=== PATIENT | female | born 1950 | race Caucasian/White ===

== ENCOUNTER 2022-10-22 12:11 | Emergency (ER) | payer MEDICARE, BC, SELFPAY ==
[2022-10-22 12:22] VITALS: BP 138/61; PULSE 72; TEMP 35.9; O2SAT 100; BMI 20.2
--- NOTE | 2022-10-22 13:30 | ED.LOWEXIN ---
HPI - Extremity Injury (Lower) General Time Seen by Provider: 13:30 Date Seen: 10/22/22 Chief Complaint: Extremity Pain/Injury, Lower Stated Complaint: Right knee injury Time Seen by Provider: 10/22/22 13:07 Source: patient, RN notes reviewed and old records reviewed Mode of arrival: wheelchair Limitations: no limitations History of Present Illness HPI Narrative: Joellen is a very pleasant 72-year-old female with a history of hypertension and hyperlipidemia via private vehicle but in a wheelchair for right leg trauma. Patient was noted to be out in the yd with her dogs. She had 1 dog on her left and another dog ran and hit her from the lateral aspect of her right knee. This caused her to fall over the dog on her left. Since that time she has had excruciating right leg pain mainly in the knee. She states that her hip also hurts but agrees that is likely from radiation from her knee. She has been unable to bear weight or to straighten her leg out since that time. She has not taken any medications. In fact she states that she has not had anything to eat this morning and that she does suffer from low blood sugar. She notes that she did get nauseated on her way to the hospital. She denies any head ache, head trauma, neck pain. Any movement greatly increases her discomfort. Related Data Home Medications Medication Instructions Recorded Confirmed diltiazem HCl 120 mg mg PO 10/22/22 capsule,extended release 24 hr diltiazem HCl 180 mg mg PO 10/22/22 capsule,extended release 24 hr gabapentin 300 mg capsule mg 10/22/22 rosuvastatin 10 mg tablet mg 10/22/22 Allergies Allergy/AdvReac Type Severity Reaction Status Date / Time lisinopril Allergy Unknown Verified 10/22/22 12:25 Review of Systems Status of ROS: Reports: 10 or more systems reviewed and unremarkable except as noted in History and below Const: Denies: fever or chills Eyes: Denies: change in vision ENMT: Denies: neck pain Cardio: Denies: chest pain or shortness of breath with exertion Resp: Denies: shortness of breath or cough GI: Reports: nausea; Denies: abdominal pain or vomiting Musculo: Reports: extremity pain (Right hip, knee, ankle and foot); Denies: back pain or neck pain Neuro: Denies: headache Viral/Lymph: Reports: easy bruising (If using aspirin or NSAIDs) PFSH [facility] Social History Smoking Status: Unknown if ever smoked How often do you have a drink containing alcohol: 2-4 times a month How many standard drinks containing alcohol do you have on a typical day: 1 or 2 How often do you have six or more drinks on one occasion: Never AUDIT-C Alcohol total score: 2 Non-prescribed substance use: denies use Exam Narrative: Exam Narrative: Patient is alert and oriented. Mentating normally. Head is atraumatic normocephalic. No midline cervical tenderness. Heart with regular rate and rhythm. Lungs are clear bilaterally. Abdomen soft. Palpation over the left hip increases discomfort mainly radiating to the knee. I am unable to examine the knee given patient's exquisite discomfort. Distally she has pain over the lateral aspect of her right foot. She states that she cannot feel me palpating her over the distal fibula or over the lateral malleolus. No swelling of the foot or ankle. Patient examined in her wheelchair. Further exam after patient successfully moved to bed notes no crepitus or bruising on chest wall. Abdomen is soft nontender. No pain with palpation over greater trochanter or PE pain in hips. Knee is somewhat swollen but no erythema. Patella appears to be in normal place. No significant discomfort with palpation over the medial joint line. Discomfort definitely noted over the lateral joint line and with any movement. Examination of left chest wall, left hip left leg shows no ecchymosis pedal pulses intact bilaterally. Const: Vital Signs, click to edit/add: Vital Signs - 24 hr 10/22/22 12:22 10/22/22 14:31 10/22/22 15:21 Temperature 96.7 F L Pulse Rate [Left P ulse Oximeter] 72 68 58 L Respiratory Rate 16 16 Blood Pressure [Ri ght Upper Arm] 138/61 147/67 H 141/61 H Pulse Oximetry 100 98 99 Oxygen Delivery Me thod Room Air Room Air Room Air 10/22/22 16:19 Temperature Pulse Rate [Left P ulse Oximeter] 84 Respiratory Rate 18 Blood Pressure [Ri ght Upper Arm] Pulse Oximetry 96 Oxygen Delivery Me thod Room Air Documenting provider has reviewed patient's vital signs: yes Course Course Hospital Course: At this time patient is in exquisite pain with any movement. Patient will need to have x-rays of her right lower extremity but this will be and nearly impossible giving her pain. Will have an IV placed, fentanyl 50 mcg given, and Accu-Chek done. Will add Zofran for nausea. I am hopeful that this will allow us to get x-rays of the patient. If not we could always add a low-dose ketamine drip over 20 minutes. Reevaluation(s) Reevaluation #1: Patient did have relief with fentanyl 50 mcg. Further 25 mcg was given as well as Ativan 0.5 mg to help with muscle spasm. Prior to departure patient given oxycodone 5 mg p.o.. Vital Signs Vital signs: Initial Vital Signs Temperature 96.7 F L 10/22/22 12:22 Temperature Source Temporal Artery Scan 10/22/22 12:22 Pulse Rate 72 10/22/22 12:22 Blood Pressure 138/61 10/22/22 12:22 Blood Pressure Mean 86 10/22/22 12:22 Blood Pressure Position Sitting 10/22/22 12:22 Pulse Oximetry 100 10/22/22 12:22 Oxygen Delivery Method 10/22/22 12:22 Vital Signs Temperature 96.7 F L 10/22/22 12:22 Pulse Rate 72 10/22/22 12:22 Blood Pressure 138/61 10/22/22 12:22 Pulse Oximetry 100 10/22/22 12:22 Oxygen Delivery Method 10/22/22 12:22 Temperature 96.7 F L 10/22/22 12:22 Pulse Rate 84 10/22/22 16:19 Respiratory Rate 18 10/22/22 16:19 Blood Pressure 141/61 H 10/22/22 15:21 Pulse Oximetry 96 10/22/22 16:19 Oxygen Delivery Method 10/22/22 16:19 MDM - Extremity Injury (Lower) MDM Narrative Medical decision making narrative: 1. Right tibial plateau fracture-consulted with Dr. Zamudio, orthopedic surgeon. Did request CT and results were communicated to him. Joellen was placed in a knee immobilizer and seems to have increased comfort with this. It is recommended that she use a walker or crutches with toe-touch only for balance and support. I do not think she would be able to tolerate full weight-bearing. For pain she is given oxycodone 5 mg, 1-2 tabs p.o. q.4-6 hours p.r.n. pain 20. [facility]. She denies a history of nausea with the use of narcotics. I did states she could call and we could call in Zofran for her if she would develop nausea. More importantly she may develop constipation and she should start taking a stool softener now. She is to follow up with Orthopedics. 2. Disposition-she will be going home with her . Her son is also there to help her into the house. She is encouraged to return to the emergency room as needed. Medical Records Attestation: I reviewed the patient's medical records. Lab Data Attestation: I reviewed the patient's lab results. Imaging Data Tib-fib x-ray: Attestation: I have reviewed the pertinent imaging results. My impression: Lateral tibial plateau toe fracture Radiologist's impression: Findings/Impression: Acute complete comminuted minimally displaced vertically oriented lateral tibial plateau fracture. Bony mineralization is age appropriate. Right foot x-ray: Attestation: I have reviewed the pertinent imaging results. My impression: I do not note any fractures. Radiologist's impression: No acute displaced fracture or malalignment. No soft tissue swelling. Joint spaces are maintained. Bony mineralization is age appropriate. Impression: No sign of acute injury. R ankle xr: Attestation: I have reviewed the pertinent imaging results. My impression: I do not note any acute fractures. Radiologist's impression: No acute displaced fracture or malalignment. No soft tissue swelling. Joint spaces are maintained. Bony mineralization is age appropriate. No findings to explain pain. Femur XR: Attestation: I have reviewed the pertinent imaging results. My impression: Do not note any fracture of the femur or hip. Radiologist's impression: Acute complete comminuted minimally displaced vertically oriented lateral tibial plateau fracture. Lipohemarthrosis visualized on the cross-table lateral view. Joint spaces are otherwise maintained. Bony mineralization is age appropriate. CT Knee: Attestation: I have reviewed the pertinent imaging results. My impression: Comminuted lateral tibial plateau fracture. Radiologist's impression: Comminuted fracture of the lateral tibial plateau. Fracture line is oriented longitudinally, with splitting and presence of several depressed fracture fragments, most consistent with Schatzker type 2 fracture. The fracture lines extend into the tibial spines. There is an additional mildly displaced fracture at the lateral most aspect of the tibial plateau (series 5, image 39). Superior patellar enthesophytes are noted. Lipohemarthrosis is present. Discharge Plan Discharge Clinical Impression: Closed fracture of tibial plateau Patient Disposition: Home w/ Parent or Adult Condition: Improved Instructions: Leg Fracture (ED) Additional Instructions: Suggest wearing of the knee immobilizer for support. Ice to area of discomfort if possible. Use crutches or walker. You may touch foot to the floor as tolerated. For pain: Oxycodone is a narcotic that will be used for your discomfort. 1-2 tabs every 4-6 hours as needed. You may also utilize ibuprofen 600 mg every 8 hours as needed for discomfort. Follow-up with [facility] phone number [phone] for appointment. The physician I spoke to today is Dr. Zamudio. Return to the emergency room as needed. Prescriptions: No Action diltiazem HCl 180 mg capsule,extended release 24hr PO Label Comments: TAKE ONE CAPSULE BY MOUTH ONE TIME DAILY gabapentin 300 mg capsule Label Comments: TAKE ONE CAPSULE BY MOUTH ONE TIME DAILY AT BEDTIME diltiazem HCl 120 mg capsule,extended release 24hr PO Label Comments: TAKE ONE CAPSULE BY MOUTH ONE TIME DAILY rosuvastatin 10 mg tablet Label Comments: TAKE ONE TABLET BY MOUTH AT BEDTIME Stand Alone Forms: [facility] Info Instructions
[2022-10-22] MEDS: ONDANSETRON 2 MG/ML inj 4 MG IVP (13:54)
[2022-10-22] MEDS: fentaNYL 100 MCG/2 ML inj 50 MCG IVP (13:54)
--- NOTE | 2022-10-22 14:04 | CRLHL7_ITS ---
For Patients: As a result of the Century Cures Act, medical imaging exams and procedure reports are released immediately into your electronic medical record. You may view this report before your referring provider. If you have questions, please contact your health care provider. Indication: Dog ran into patient. Technique: Two views right femur. Comparison: None. Findings/Impression: Acute complete comminuted minimally displaced vertically oriented lateral tibial plateau fracture. Lipohemarthrosis visualized on the cross-table lateral view. Joint spaces are otherwise maintained. Bony mineralization is age appropriate. Dictated by Prasanth Cardona MD @ 10/22/2022 3:21:22 PM (Electronically Signed)
--- NOTE | 2022-10-22 14:04 | CRLHL7_ITS ---
For Patients: As a result of the Century Cures Act, medical imaging exams and procedure reports are released immediately into your electronic medical record. You may view this report before your referring provider. If you have questions, please contact your health care provider. Indication: Right lateral foot pain. Technique: Right foot 3 views. Comparison: None. Findings: No acute displaced fracture or malalignment. No soft tissue swelling. Joint spaces are maintained. Bony mineralization is age appropriate. Impression: No sign of acute injury. Dictated by Prasanth Cardona MD @ 10/22/2022 3:16:56 PM (Electronically Signed)
--- NOTE | 2022-10-22 14:04 | CRLHL7_ITS ---
For Patients: As a result of the Cures Act, medical imaging exams and procedure reports are released immediately into your electronic medical record. You may view this report before your referring provider. If you have questions, please contact your health care provider. Indication: Right lateral foot pain. Technique: Right ankle 2 views. Comparison: None. Findings: No acute displaced fracture or malalignment. No soft tissue swelling. Joint spaces are maintained. Bony mineralization is age appropriate. No findings to explain pain. Dictated by Prasanth Cardona MD @ 10/22/2022 3:15:25 PM (Electronically Signed)
--- NOTE | 2022-10-22 14:04 | CRLHL7_ITS ---
For Patients: As a result of the Century Cures Act, medical imaging exams and procedure reports are released immediately into your electronic medical record. You may view this report before your referring provider. If you have questions, please contact your health care provider. Indication: Foot pain, dog ran into patient. Technique: Two views right tibia fibula. Comparison: None. Findings/Impression: Acute complete comminuted minimally displaced vertically oriented lateral tibial plateau fracture. Bony mineralization is age appropriate. Dictated by Prasanth Cardona MD @ 10/22/2022 3:19:25 PM (Electronically Signed)
[2022-10-22 14:31] VITALS: BP 147/67; PULSE 68; RESP 16; O2SAT 98
[2022-10-22 15:21] VITALS: BP 141/61; PULSE 58; RESP 16; O2SAT 99
[2022-10-22] MEDS: fentaNYL 100 MCG/2 ML inj 25 MCG IVP (16:08)
[2022-10-22 16:19] VITALS: PULSE 84; RESP 18; O2SAT 96
--- NOTE | 2022-10-22 16:19 | CRLHL7_ITS ---
For Patients: As a result of the Century Cures Act, medical imaging exams and procedure reports are released immediately into your electronic medical record. You may view this report before your referring provider. If you have questions, please contact your health care provider. HISTORY: Right knee pain. TECHNIQUE: Noncontrast CT of the right knee. COMPARISON: Radiographs 10/22/2022. FINDINGS: There is an acute comminuted fracture of the proximal tibia disrupting the lateral tibial plateau, extending to involve the tibial eminence and propagating within the lateral metaphysis. There is approximately 10 mm of maximal focal depression at the articular surface as seen on coronal image 40 of series 5. No disruption of the medial tibial plateau articular surface. No acute distal femoral or patellar fracture. There are underlying degenerative changes of the knee. A lipohemarthrosis is present and relates to the proximal tibial fracture. IMPRESSION: 1. Acute comminuted fracture of the proximal tibia with disruption of the lateral tibial plateau articular surface where there is 10 mm maximal focal depression. No involvement of the medial tibial plateau articular surface. 2. Associated right knee lipohemarthrosis. 3. Degenerative changes of the knee. Please note that all CT scans at this facility use dose modulation, iterative reconstruction, and/or weight-based dosing when appropriate to reduce radiation dose to as low as reasonably achievable. Dictated by Rey Francis MD @ 10/23/2022 7:30:39 AM (Electronically Signed)
[2022-10-22] MEDS: LORazepam 2 MG/ML inj 0.5 MG IVP (16:35)
[2022-10-22] MEDS: OXYCODONE 5 MG TABLET PO (18:18)
== END 2022-10-22 20:00 | disposition home or self-care (01) ==
PROVIDERS: Emergency Provider Family Medicine; PCP Family Medicine
DX: S82.141A Displaced bicondylar fracture of right tibia, initial encounter for closed fracture (principal); W18.31XA Fall on same level due to stepping on an object, initial encounter; Y93.89 Activity, other specified; Y92.017 Garden or yard in single-family (private) house as the place of occurrence of the external cause; Y99.9 Unspecified external cause status
CPT/HCPCS: 73552; 73590; 73600; 73620; 73700; 82962; 96374; 96375; 99284; A9270; J2060; J2405; J3010